=== PATIENT | female | born 1975 | race Caucasian/White ===

== ENCOUNTER 2016-09-26 21:01 | Emergency (ER) | payer MEDICARE, MEDICAID ==
--- NOTE | 2016-09-26 22:05 | ER Document Report ---
ED Medical Screen (RME) - General Stated Complaint: LOWER BACK PAIN Time seen by provider: 22:00 Mode of Arrival: Ambulatory Information source: Patient Notes: 41 yo female presents to ed for chronic low back pain for a long time. She states her primary md told her to come to the ed. States Dr Cummins saw her in July and referred her to Dr Alcazar. She states she went to the doctor recommended and he kicked her out of his office. she states only a miracle could cure her and for her to get her "ass" out of his office TRAVEL OUTSIDE OF THE [place] IN LAST 30 DAYS: No - Related Data Allergies/Adverse Reactions: acetaminophen [From Lortab] Adverse Reaction (Verified 08/04/16 11:57) hydrocodone bitartrate [From Lortab] Adverse Reaction (Verified 08/04/16 11:57) Past Medical History - Past Medical History Cardiac Medical History: Reports: Hx Hypertension Musculoskeltal Medical History: Reports Hx Arthritis Psychiatric Medical History: Reports: Hx Anxiety, Hx Depression Past Surgical History: Reports: Hx Appendectomy, Hx Section, Hx Hysterectomy, Hx Orthopedic Surgery - back 2002 for herniated disc at L4 and L5 ; feet, Hx Tonsillectomy, Hx Tubal Ligation - Immunizations Hx Diphtheria, Pertussis, Tetanus Vaccination: Yes - 8 years ago
[2016-09-26] MEDS ORDERED: IBUPROFEN 800 MG TABLET PO ONE (22:06)
[2016-09-27] MEDS ORDERED: HYDROMORPHONE HCL INJ/PF 2 MG/ML AMPULE IM ONE (04:18)
[2016-09-27] MEDS ORDERED: DIPHENHYDRAMINE HCL 50 MG/ML VIAL IM ONE (05:00)
--- NOTE | 2016-09-27 05:05 | ER Document Report ---
ED General - General Chief Complaint: Low Back Pain Stated Complaint: LOWER BACK PAIN Mode of Arrival: Ambulatory Notes: Patient is a 41-year-old female presents with complaint of low back pain. Pain rates from the right side of the low back and her gluteal region and down her right leg. She does have some weakness in her right foot which says has been there for several months. No saddle anesthesia. No loss of bowel control. She 's actually had some constipation. She says that she is not urinating as much because it hurts to sit down and therefore she has to however over the toilet seat to be able to urinate. She also says it hurts to bear down to urinate, but she is able to urinate despite the pain. No fevers. No infections. No recent trauma to the right side of her back. She does have a history of back surgery and L3 and L4 2003. She's been on disability since 2004. She did see her primary care doctor. She called him and he told her to come to ER for management of her acute pain. She was referred to Dr. Haas, back surgeon, who told her that her back pain cannot be helped because she is a smoker. This is per the patient's report. This is not per Dr. Haas's records. Patient has no other complaints at this time. TRAVEL OUTSIDE OF THE [place] IN LAST 30 DAYS: No - Related Data Allergies/Adverse Reactions: hydrocodone bitartrate [From Lortab] Adverse Reaction (Verified 08/04/16 11:57) Past Medical History - General Information source: Patient - Social History Smoking Status: Current Every Day Smoker Chew tobacco use (# tins/day): No Frequency of alcohol use: None Drug Abuse: None Family History: Reviewed & Not Pertinent Patient has suicidal ideation: No Patient has homicidal ideation: No - Past Medical History Cardiac Medical History: Reports: Hx Hypertension Renal/ Medical History: Denies: Hx Peritoneal Dialysis Musculoskeltal Medical History: Reports Hx Arthritis Psychiatric Medical History: Reports: Hx Anxiety, Hx Depression Past Surgical History: Reports: Hx Appendectomy, Hx Section, Hx Hysterectomy, Hx Orthopedic Surgery - back 2002 for herniated disc at L4 and L5 ; feet, Hx Tonsillectomy, Hx Tubal Ligation - Immunizations Hx Diphtheria, Pertussis, Tetanus Vaccination: Yes - 8 years ago Review of Systems - Review of Systems Notes: My Normal Review Basic REVIEW OF SYSTEMS: CONSTITUTIONAL : Denies fever, chills, or sweats. Denies recent illness. RESPIRATORY: Denies cough, cold, or chest congestion. Denies shortness of breath, difficulty breathing, or wheezing. GASTROINTESTINAL: Denies abdominal pain. Denies nausea, vomiting, or diarrhea. Denies constipation. Last BM: MUSCULOSKELETAL: Right sided back pain SKIN: Denies rash or skin lesions. NEUROLOGICAL: Denies altered mental status or loss of consciousness. Denies headache. Denies weakness or paralysis or loss of use of either side. Denies problems with gait or speech. Denies sensory or motor loss. ALL OTHER SYSTEMS REVIEWED AND NEGATIVE. Physical Exam - Vital signs Vitals: Temp Pulse Resp BP Pulse Ox 99.1 F 106 H 22 H 163/73 H 100 09/26/16 21:58 09/26/16 21:58 09/26/16 21:58 09/26/16 21:58 09/26/16 21:58 - Notes Notes: General Appearance: Well nourished, alert, cooperative, no acute distress, moderate obvious discomfort. Vitals: reviewed, See vital signs table. Neck: Supple, no neck tenderness, No thyromegaly Lungs: No wheezing, No rales, No rhonci, No accessory muscle use, good air exchange bilaterally. Heart: Normal rate, Regular rythm, No murmur, no rub Abdomen: Normal BS, soft, No rigidity, No abdominal tenderness, No guarding, no rebound, no abdominal masses, no organomegaly Rectal: Strongly rectal tone. Patient has good sensation in the rectal area. Back: Some pain to palpation over the lower right back. Pain is worse over the right gluteal region. Extremities: , good pulses in all extremities, no swelling or tenderness in the extremities, no edema. Normal strength and left lower extremity. Patient does have some weakness with plantar flexion of the right foot. She is able dorsiflex the right foot without difficulty. Distal sensation intact. Normal patella reflex. Skin: warm, dry, appropriate color, no rash Neuro: speech clear, oriented x 3, normal affect, responds appropriately to questions. Course - Vital Signs Vital signs: Temp Pulse Resp BP Pulse Ox 99.1 F 106 H 20 163/73 H 100 09/26/16 21:58 09/26/16 21:58 09/27/16 02:15 09/26/16 21:58 09/26/16 21:58 - Transfer of Care Notes: 09/27/16 05:06 Patient's says that she's feeling improved after the pain medication. She still has some pain but it is much improved compared to before. Patient is able move her extremities without too much difficulty with exception of the weakness with plantar flexion of the right foot which is unchanged compared to her baseline. She is good rectal tone. She has no findings consistent with central spinal cord impingement or cauda equina syndrome. I will refer her to the back surgeon, Dr. Acosta. I will also refer her to pain management, Dr. Potter. Informed her that the ER cannot continue to manage her chronic pain and that she must find a single provider to manage her pain. Patient encouraged to return to ER immediately if she has new weakness in her lower extremities, inability to urinate, loss of bowel control, fevers, or feels unwell. Patient agrees with plan and will be discharged home. Dictation of this chart was performed using voice recognition software; therefore, there may be some unintended grammatical errors. 09/27/16 05:07 Discharge - Discharge Clinical Impression: Back pain Qualifiers: Back pain location: low back pain Chronicity: chronic Back pain laterality: right Sciatica presence: with sciatica Sciatica laterality: sciatica of right side Qualified Code(s): M54.41 - Lumbago with sciatica, right side; G89.29 - Other chronic pain Condition: Good Disposition: HOME, SELF-CARE Additional Instructions: LOW BACK PAIN: Three out of every four people will have an episode of disabling back pain during their lifetime. Most commonly the pain is due to straining of the muscles and ligaments in the low back. Usual treatment includes: (1) Rest on a firm surface. Avoid lying on your stomach. (2) Ice pack the painful area. After a few days, gentle heat may be used intermittently to relax the area, or ice packs can be continued. (3) Medication may be needed -- muscle relaxers and antiinflammatory medicines are commonly used. (4) As the back improves, exercises are prescribed to strengthen the back and abdominal muscles. Your doctor will advise you on the proper care for your back at each stage in your recovery. You may be better in a few days -- or healing may take several weeks. If new symptoms of a "herniated disc" (radiation of pain, numbness, or tingling down the back of the leg or weakness in the leg) occur, you should be re-examined. Further testing may be necessary. PAIN MEDICATION INJECTION: You have received an injection of a pain medication. You should experience significant pain relief within 45 minutes. If this injection was a narcotic -- it will impair your judgement, slow your reaction time and make you sleepy (as well as relieve your pain). Narcotics also can cause nausea. You should not drive, work with machinery, or perform any task requiring mental alertness until all effects of the medication are gone -- six to eight hours. Do not take any alcohol, or sedatives, and do not take any other medication without checking with your physician. ORAL NARCOTIC MEDICATION: You have been given a prescription for pain control. This medication is a narcotic. It's best taken with food, as nausea can result if taken on an empty stomach. Don't operate machinery or drive within six hours of taking this medication. Do not combine this medicine with alcohol, or with any medication which can cause sedation (such as cold tablets or sleeping pills) unless you get permission from the physician. Narcotics tend to cause constipation. If possible, drink plenty of fluids and eat a diet high in fiber and fruits. Please be aware that prescription narcotics also have the potential for abuse. People become addicted to these medications because of the general sense of wellbeing that they induce. This feeling along with a significant reduction in tension, anxiety, and aggression provides a stimulating seductive quality to these drugs. Once your pain is under control, we encourage you to discard your unused narcotics. ICE PACKS: Apply ice packs frequently against the painful area. Many different schedules are recommended, such as "20 minutes on, 20 minutes off" or "one hour ice, two hours rest." If you need to work, you may need to go longer between ice treatments. You should plan to have the area ice packed AT LEAST one fourth of the time. The ice should be applied over the wrap, tape, or splint, or over a layer of cloth -- not directly against the skin. Some ice bags have a built-in cloth and can be put directly on the skin. WARM PACKS: After approximately two days, apply gentle heat (such as a heating pad or hot water bottle) for about 20 to 30 minutes about every two hours -- at least four times daily. Warmth and elevation will help you make a more rapid recovery , and will ease the pain considerably. Do not use HOT heat, and never apply heat for longer than 30 minutes. The continuous heat can invisibly damage skin and muscles -- even when no burn is seen on the surface. Damaged muscles can make you MORE sore. FOLLOW-UP CARE: If you have been referred to a physician for follow-up care, call the physician s office for an appointment as you were instructed or within the next two days. If you experience worsening or a significant change in your symptoms, notify the physician immediately or return to the Emergency Department at any time for re-evaluation. Please return to ER immediately if you have worsening pain, new weakness or numbness in your lower extremity, loss of control of her bowel function, are unable to urinate, or have numbness around your rectum. Please follow-up with Dr. Acosta, back surgeon, for further evaluation. Please follow-up with Dr. Thom Potter, pain management physician, for further management of your pain. Prescriptions: Oxycodone HCl/Acetaminophen [Percocet 5-325 mg Tablet] 1 tab PO Q4H PRN #15 tablet PRN Reason: Referrals: NASIR ACOSTA MD [NO LOCAL MD] - Follow up in 3-5 days THOM POTTER MD [ACTIVE STAFF] - Follow up in 3-5 days
[2016-09-27 05:34] VITALS: BP 131/64
== END 2016-09-27 05:25 | disposition home or self-care (01) ==
LOC: ER 21:01
DX: G89.29 Other chronic pain (principal); M54.41 Lumbago with sciatica, right side; R53.1 Weakness; K59.00 Constipation, unspecified; I10 Essential (primary) hypertension; F17.200 Nicotine dependence, unspecified, uncomplicated; Z98.890 Other specified postprocedural states
CPT/HCPCS: 99283; 96372; A9270; J1200; J1170

== ENCOUNTER 2016-10-02 05:35 | Emergency (ER) | payer MEDICARE, MEDICAID ==
[2016-10-02] MEDS ORDERED: MORPHINE SULFATE 10 MG/ML INJ IM ONE (07:02)
--- NOTE | 2016-10-02 07:35 | ER Document Report ---
ED General - General Chief Complaint: Low Back Pain Stated Complaint: BACK PAIN Mode of Arrival: Ambulatory Information source: Patient Notes: 41-year-old female presents with complaints of low back pain. Patient notes the pain has been ongoing for about 3 months, has Medicaid and has been unable to see any specialists. Patient states that she has tried to see pain specialist but did not have prior authorization.. Patient notes that she's had difficulty urinating over the past 2 months but states to difficulty with urination has worsened due to the pain TRAVEL OUTSIDE OF THE [place] IN LAST 30 DAYS: No - HPI Onset: Other Onset/Duration: Persistent Quality of pain: Achy Severity: Moderate Pain Level: 2 Associated symptoms: Other Exacerbated by: Movement Relieved by: Denies Similar symptoms previously: Yes Recently seen / treated by doctor: Yes - Related Data Allergies/Adverse Reactions: hydrocodone bitartrate [From Lortab] Adverse Reaction (Verified 10/02/16 05:46) Past Medical History - Social History Smoking Status: Current Every Day Smoker Cigarette use (# per day): Yes Chew tobacco use (# tins/day): No Smoking Education Provided: No Family History: Reviewed & Not Pertinent - Past Medical History Cardiac Medical History: Reports: Hx Hypertension Renal/ Medical History: Denies: Hx Peritoneal Dialysis Musculoskeltal Medical History: Reports Hx Arthritis Psychiatric Medical History: Reports: Hx Anxiety, Hx Depression Past Surgical History: Reports: Hx Appendectomy, Hx Section, Hx Hysterectomy, Hx Orthopedic Surgery - back 2002 for herniated disc at L4 and L5 ; feet, Hx Tonsillectomy, Hx Tubal Ligation - Immunizations Hx Diphtheria, Pertussis, Tetanus Vaccination: Yes - 8 years ago Review of Systems - Review of Systems Notes: REVIEW OF SYSTEMS: CONSTITUTIONAL : Denies fever, chills, or sweats. Denies recent illness. EENT: Denies eye, ear, throat, or mouth pain or symptoms. Denies nasal or sinus congestion or discharge. Denies throat, tongue, or mouth swelling or difficulty swallowing. CARDIOVASCULAR: Denies chest pain. Denies palpitations or racing or irregular heart beat. Denies ankle edema. RESPIRATORY: Denies cough, cold, or chest congestion. Denies shortness of breath, difficulty breathing, or wheezing. GASTROINTESTINAL: Denies abdominal pain or distention. Denies nausea, vomiting , or diarrhea. Denies blood in vomitus, stools, or per rectum. Denies black, tarry stools. Denies constipation. GENITOURINARY: Admits difficulty urinating FEMALE GENITOURINARY: Denies vaginal bleeding, heavy or abnormal periods, irregular periods. Denies vaginal discharge or odor. MUSCULOSKELETAL: Admits to low back pain SKIN: Denies rash, lesions or sores. HEMATOLOGIC : Denies easy bruising or bleeding. LYMPHATIC: Denies swollen, enlarged glands. NEUROLOGICAL: Denies confusion or altered mental status. Denies passing out or loss of consciousness. Denies dizziness or lightheadedness. Denies headache. Denies weakness or paralysis or loss of use of either side. Denies problems with gait or speech. Denies sensory loss, numbness, or tingling. Denies seizures. PSYCHIATRIC: Denies anxiety or stress. Denies depression, suicidal ideation, or homicidal ideation. ALL OTHER SYSTEMS REVIEWED AND NEGATIVE. Dictation was performed using [employer] voice recognition software PHYSICAL EXAMINATION: GENERAL: Well-appearing, well-nourished and in no acute distress when I walked in but immediately begins to move around in the bed moving her lower extremities and states she is in pain HEAD: Atraumatic, normocephalic. EYES: Pupils equal round and reactive to light, extraocular movements intact, conjunctiva are normal. ENT: Nares patent, oropharynx clear without exudates. Moist mucous membranes. NECK: Normal range of motion, supple without lymphadenopathy LUNGS: Breath sounds clear to auscultation bilaterally and equal. No wheezes rales or rhonchi. HEART: Regular rate and rhythm without murmurs ABDOMEN: Soft, nontender, nondistended abdomen. No guarding, no rebound. No masses appreciated. Female : deferred Musculoskeletal: Normal range of motion, no pitting or edema. No cyanosis. NEUROLOGICAL: Cranial nerves grossly intact. Normal speech, normal gait. Normal sensory, motor exams PSYCH: Normal mood, normal affect. SKIN: Warm, Dry, normal turgor, no rashes or lesions noted. Physical Exam - Vital signs Vitals: Resp 20 10/02/16 05:49 Course - Re-evaluation Re-evalutation: 10/02/16 07:35 Patient had an MRI performed 2 months prior however given that she states with complaints of worsened I have ordered a repeat MRI of her lumbar spine. I do not expect any life-threatening issues 10/02/16 11:25 MRI noted no compression, pt will be given follow up with PCP for further care and pain management After performing a Medical Screening Examination, I estimate there is LOW risk for EXPANDING OR RUPTURED ABDOMINAL AORTIC ANEURYSM, CAUDA EQUINA SYNDROME, EPIDURAL MASS LESION, or HERNIATED DISK CAUSING SEVERE SPINAL STENOSIS, thus I consider the discharge disposition reasonable. The patient and I have discussed the diagnosis and risks, and we agree with discharging home and close follow-up. We also discussed returning to the Emergency Department immediately if new or worsening symptoms occur with the understanding that symptoms and presentations can change. We have discussed the symptoms which are most concerning (e.g., saddle anesthesia, urinary or bowel incontinence or retention , changing or worsening pain) that necessitate immediate return. - Vital Signs Vital signs: Temp Pulse Resp BP Pulse Ox 97.8 F 72 14 127/66 H 97 10/02/16 10:33 10/02/16 10:33 10/02/16 10:33 10/02/16 10:33 10/02/16 10:33 - Diagnostic Test Radiology reviewed: Image reviewed, Reports reviewed Discharge - Discharge Clinical Impression: Back pain Qualifiers: Back pain location: low back pain Chronicity: chronic Back pain laterality: right Sciatica presence: with sciatica Sciatica laterality: sciatica of right side Qualified Code(s): M54.41 - Lumbago with sciatica, right side Condition: Stable Disposition: HOME, SELF-CARE Instructions: Low Back Pain ([facility]) Additional Instructions: [facility] Internal Medicine Internal Medicine [place] Address: [address], [place] [address] Prescriptions: Oxycodone HCl/Acetaminophen [Percocet 5-325 mg Tablet] 1 - 2 tab PO Q4H PRN #15 tablet PRN Reason:
[2016-10-02 10:34] VITALS: BP 127/66
== END 2016-10-02 11:49 | disposition home or self-care (01) ==
LOC: ER 05:35
DX: M54.41 Lumbago with sciatica, right side (principal); G89.29 Other chronic pain; R39.9 Unspecified symptoms and signs involving the genitourinary system; I10 Essential (primary) hypertension; F17.210 Nicotine dependence, cigarettes, uncomplicated; Z98.890 Other specified postprocedural states
CPT/HCPCS: 99283; 96372; 72148; J2270

== ENCOUNTER → 2018-12-30 | Outpatient (CLI) | payer MEDICARE, MEDICAID ==
[2018-12-30 14:57] LABS: ABSOLUTE LYMPHOCYTES (AUTO) 2.6 10^3/uL (0.5-4.7); ABSOLUTE MONOCYTES (AUTO) 0.4 10^3/uL (0.1-1.4); ABSOLUTE NEUT (AUTO) 4.3 10^3/uL (1.7-8.2); BASOPHILS % (AUTO) 0.3 % (0-2); EOSINOPHILS % (AUTO) 0.1 % (0-6); HEMATOCRIT 37.5 % (36.0-47.0); LYMPHOCYTES % (AUTO) 35.2 % (13-45); MEAN CORPUSCULAR HGB CONC 34.6 g/dL (32.0-36.0); MEAN CORPUSCULAR VOLUME 90 fl (80-97); PLATELET COUNT 157 10^3/uL (150-450); RED BLOOD COUNT 4.19 10^6/uL (3.72-5.28); RED CELL DISTRIBUTION WIDTH 12.6 % (11.5-14.0); SEGMENTED NEUTROPHILS % (AUTO) 59.4 % (42-78); TOTAL CELLS COUNTED % (AUTO) 100 %; WHITE BLOOD COUNT 7.3 10^3/uL (4.0-10.5)
--- NOTE | 2018-12-30 15:04 | RADIOLOGY REPORT (SQ) ---
EXAM DESCRIPTION: CT HEAD COMBO COMPLETED DATE/TIME: 12/30/2018 2:29 pm REASON FOR STUDY: SYNCOPE (R55) R55 SYNCOPE AND COLLAPSE COMPARISON: CT brain 11/14/2015 TECHNIQUE: Axial images acquired through the brain without and with intravenous contrast. Images re viewed with bone, brain and subdural windows. Additional sagittal and coronal reconstructions were g enerated. Images stored on PACS. All CT scanners at this facility use dose modulation, iterative reconstruction, and/or weight based d osing when appropriate to reduce radiation dose to as low as reasonably achievable (ALARA). [facility]: Dose Right [facility]: CareDose [facility]: Dose Right [facility]: Teradose 4D [facility]: Locu CONTRAST TYPE AND DOSE: contrast/concentration: Isovue 350.00 mg/ml; Total Contrast Delivered: 50.0 ml; Total Saline Delivered: 55.0 ml RENAL FUNCTION: Creatinine 0.9 RADIATION DOSE: CT Rad equipment meets quality standard of care and radiation dose reduction techniq ues were employed. CTDIvol: 48.6 mGy. DLP: 1760 mGy-cm.. LIMITATIONS: None. FINDINGS: VENTRICLES: Normal size and contour. CEREBRUM: No masses. No hemorrhage. No midline shift. Normal armstrong/white matter differentiation. No ev idence for acute infarction. No enhancing lesions. CEREBELLUM: No masses. No hemorrhage. No alteration of density. No evidence for acute infarction. No enhancing lesions. EXTRA-AXIAL SPACES: No fluid collections. No enhancing lesions. ORBITS AND GLOBE: No intra- or extraconal masses. Normal contour of globe without masses. CALVARIUM: No fracture. PARANASAL SINUSES: No fluid or mucosal thickening. SOFT TISSUES: No mass or hematoma. OTHER: No other significant finding. IMPRESSION: NORMAL BRAIN CT WITHOUT AND WITH CONTRAST. EVIDENCE OF ACUTE STROKE: NO. TECHNICAL DOCUMENTATION: JOB ID: [id number] Quality ID # [id number]: Final reports with documentation of one or more dose reduction techniques (e.g., Au tomated exposure control, adjustment of the mA and/or kV according to patient size, use of iterative reconstruction technique) 2010 [employer]- All Rights Reserved Reading location - IP/workstation name: [email or web address]
[2018-12-30 15:17] LABS: ALANINE AMINOTRANSFERASE 22 U/L (9-52); ALBUMIN 4.2 g/dL (3.5-5.0); ALKALINE PHOSPHATASE 60 U/L (38-126); ANION GAP 9 (5-19); ASPARTATE AMINO TRANSFERASE 16 U/L (14-36); BILIRUBIN,DIRECT 0.2 mg/dL (0.0-0.4); BILIRUBIN,TOTAL 0.3 mg/dL (0.2-1.3); BLOOD UREA NITROGEN 9 mg/dL (7-20); CALCIUM 9.4 mg/dL (8.4-10.2); CARBON DIOXIDE 28 mmol/L (22-30); CHLORIDE 101 mmol/L (98-107); CHOLESTEROL 185.78 mg/dL (0-200); GLUCOSE 82 mg/dL (75-110); POTASSIUM 4.6 mmol/L (3.6-5.0); SODIUM 137.8 mmol/L (137-145); TOTAL PROTEIN 7.1 g/dL (6.3-8.2); TRIGLYCERIDES 105 mg/dL (<150)
[2018-12-30 15:28] LABS: DIRECT LDL 118 mg/dL (<100)
== END ==
LOC: RAD 13:12
PROVIDERS: ATTEND Family Medicine Geriatric Medicine
DX: E05.90 Thyrotoxicosis, unspecified without thyrotoxic crisis or storm (principal); R55 Syncope and collapse; I10 Essential (primary) hypertension
CPT/HCPCS: 36415; 70470; 80053; 80061; 82565; 84443; 85025

== ENCOUNTER → 2019-01-01 | Outpatient (CLI) | payer MEDICAID, MEDICARE ==
--- NOTE | 2019-01-01 16:06 | RADIOLOGY REPORT (SQ) ---
EXAM DESCRIPTION: CAROTID DOPPLER COMPLETED DATE/TIME: 01/01/2019 3:48 pm REASON FOR STUDY: SYNCOPE R55 SYNCOPE AND COLLAPSE COMPARISON: None. TECHNIQUE: Grayscale ultrasound, Doppler velocity and spectra, and color Doppler images acquired of the extra-cranial carotid and vertebral arteries. Images stored on PACS. LIMITATIONS: None. FINDINGS: RIGHT CAROTID CCA Velocities: Within normal limits. ICA Velocities Peak systolic 128 cm/s. End diastolic 59 cm/s. Proximal ICA/CCA peak systolic ratio 1.36. Spectra normal. No significant plaque. LEFT CAROTID CCA Velocities: Within normal limits. ICA Velocities Peak systolic 124 cm/s. End diastolic 50 cm/s. Proximal ICA/CCA peak systolic ratio 1.02. Spectra normal. No significant plaque. VERTEBRAL ARTERIES: Antegrade flow. Normal waveforms. SUBCLAVIAN ARTERIES: No finding. OTHER: No other significant finding. IMPRESSION: NO HEMODYNAMICALLY SIGNIFICANT STENOSIS. COMMENT: Quality ID #[id number]: Velocity criteria are extrapolated from the diameter data as defined by t he Society of Radiologists in Ultrasound Consensus Conference. Radiology 2003: 229; 340-346. TECHNICAL DOCUMENTATION: JOB ID: [id number]- All Rights Reserved Reading location - IP/workstation name: [email or web address]
--- NOTE | 2019-01-01 16:37 | XCELERA REPORT ---
[address] [address] Transthoracic Echocardiogram Report Name: MARIA LUISA YING Age: 43 yrs Gender: Female : 1975 Patient Status: Outpatient Patient Location: [facility] Study Date: 01/01/2019 02:22 PM Height: 63 in Weight: 140 lb BSA: 1.7 m2 Reason For Study: SYNCOPE Ordering Physician: PROSPER DELACRUZ Performed By: Levon Frias Interpretation Summary No post pericardial effusion. AV configuration not seen in SAX, not suspicious of , no AR. Normal MV with no MS, no MVP and mild MR with no LA enlargement. No LVH, no IHSS, mild inferoseptal hypokinesis. Normal LVEF 60 % with no LV diastolic dysfunction. RH is normal no TR jet sampled to derive RVSP to r/o pulm hypertension. No ASD. No valvular vegetation or LAmyxoma, or LV apical clot. MMode/2D Measurements & Calculations RVDd: 3.0 cm LVIDd: 4.6 cm FS: 33.7 % Ao root diam: 2.2 cm IVSd: 0.74 cm LVIDs: 3.0 cm EDV(Teich): Ao root area: LVPWd: 0.78 cm 96.1 ml ESV(Teich): 3.9 cm2 36.0 ml LA dimension: 3.6 cm EF(Teich): 62.5 % LVLd ap4: 8.2 cm SV(MOD-sp4): EDV(MOD-sp4): 42.0 ml 76.0 ml LVLs ap4: 6.1 cm ESV(MOD-sp4): 34.0 ml EF(MOD-sp4): 55.3 % Doppler Measurements & Calculations MV E max jj: MV P1/2t max jj: Ao V2 max: LV V1 max P.0 cm/sec 118.9 cm/sec 127.6 cm/sec 4.8 mmHg MV A max jj: MV P1/2t: 82.6 msec Ao max PG: LV V1 max: 39.0 cm/sec 6.5 mmHg 110.1 cm/sec MV E/A: 2.9 MVA(P1/2t): 2.7 cm2 MV dec slope: 421.6 cm/sec2 MV dec time: 0.27 sec PA V2 max: MV P1/2t-pr_phl: 124.5 cm/sec 82.6 msec PA max P.2 mmHg Left Ventricle The left ventricle is grossly normal size. There is normal left ventricular wall thickness. LV EF is 60%. Doppler measurements suggest normal left ventricular diastolic function. There is inferoseptal wall mild hypokinesis. There is no thrombus. Right Ventricle The right ventricle is normal in size, thickness and function. Atria The right atrium is normal. The left atrial size is normal. The interatrial septum is intact with no evidence for an atrial septal defect. Mitral Valve The mitral valve is grossly normal. There is no evidence of mitral valve prolapse. There is no mitral valve stenosis. There is a trace to mild amount of mitral regurgitation. Aortic Valve The aortic valve is trileaflet. The aortic valve is grossly normal. There is no aortic valvular vegetation. There is no aortic valve stenosis. No aortic regurgitation is present. Tricuspid Valve The tricuspid valve is not well visualized secondary to technical limitations. There is a trace or physiologic amount of tricuspid regurgitation. Pulmonic Valve There is no pulmonic valvular regurgitation. Great Vessels The aortic root is normal size. Effusions There is no pericardial effusion. I WMSI = 1.19 % Normal = 81 Segments Size X - Cannot 2 - 4 - 1-2 small Interpret 1 - Normal Hypokinetic 3 - AkineticDyskinetic 3-5 moderate 5 - 6-14 large Aneurysmal 15-16 diffuse : PROSPER DELACRUZ > Frank Restrepo
== END ==
LOC: SP 13:49
PROVIDERS: ATTEND Family Medicine Geriatric Medicine
DX: R55 Syncope and collapse (principal); R42 Dizziness and giddiness
CPT/HCPCS: 93306; 93880

== ENCOUNTER → 2019-07-27 | Outpatient (CLI) | payer MEDICARE ==
[2019-07-27 13:14] LABS: ABSOLUTE LYMPHOCYTES (AUTO) 2.5 10^3/uL (0.5-4.7); ABSOLUTE MONOCYTES (AUTO) 0.4 10^3/uL (0.1-1.4); ABSOLUTE NEUT (AUTO) 5.2 10^3/uL (1.7-8.2); BASOPHILS % (AUTO) 0.4 % (0-2); EOSINOPHILS % (AUTO) 0.1 % (0-6); HEMATOCRIT 40.2 % (36.0-47.0); MEAN CORPUSCULAR HGB CONC 34.8 g/dL (32.0-36.0); MEAN CORPUSCULAR VOLUME 89 fl (80-97); MONOCYTES % (AUTO) 4.5 % (3-13); PLATELET COUNT 105 10^3/uL (150-450); RED BLOOD COUNT 4.52 10^6/uL (3.72-5.28); RED CELL DISTRIBUTION WIDTH 13.3 % (11.5-14.0); TOTAL CELLS COUNTED % (AUTO) 100 %; WHITE BLOOD COUNT 8.2 10^3/uL (4.0-10.5)
[2019-07-27 13:41] LABS: ALBUMIN 4.5 g/dL (3.5-5.0); ALKALINE PHOSPHATASE 71 U/L (38-126); AMYLASE 64 U/L (30-110); ANION GAP 9 (5-19); ASPARTATE AMINO TRANSFERASE 27 U/L (14-36); BILIRUBIN,DIRECT 0.2 mg/dL (0.0-0.4); BILIRUBIN,TOTAL 0.5 mg/dL (0.2-1.3); BLOOD UREA NITROGEN 8 mg/dL (7-20); CALCIUM 9.5 mg/dL (8.4-10.2); CARBON DIOXIDE 28 mmol/L (22-30); CHLORIDE 102 mmol/L (98-107); GLUCOSE 113 mg/dL (75-110); POTASSIUM 4.5 mmol/L (3.6-5.0); TOTAL PROTEIN 7.8 g/dL (6.3-8.2)
[2019-07-27 13:46] LABS: C-REACTIVE PROTEIN < 5.0 mg/L (<10.0)
[2019-07-27 13:53] LABS: ERYTHROCYTE SEDIMENTATION RATE 22 mm/hr (0-20)
[2019-07-28 12:36] LABS: ANTICHROMATIN AB <0.2 AI (0.0-0.9); CENTROMERE B AB <0.2 AI (0.0-0.9); JO-1 ANTIBODY (ANACOMP) <0.2 AI (0.0-0.9); SJOGREN'S ANTI-SS-B AB <0.2 AI (0.0-0.9); SJOGREN'S SS-A ANTIBODY <0.2 AI (0.0-0.9)
[2019-07-28 13:48] LABS: DNA DOUBLE STRAND ANTIBODY ANA <1 IU/mL (0-9)
== END ==
LOC: OD 11:47
PROVIDERS: ATTEND Family Medicine
DX: E05.00 Thyrotoxicosis with diffuse goiter without thyrotoxic crisis or storm (principal); K62.5 Hemorrhage of anus and rectum; M25.50 Pain in unspecified joint; R10.84 Generalized abdominal pain
CPT/HCPCS: 36415; 80053; 82150; 83690; 84436; 84443; 84480; 85025; 85652; 86140; 86225; 86235; 86430

== ENCOUNTER → 2019-11-18 | Outpatient (CLI) | payer MEDICARE, MEDICAID | LOC: WI 10:00 | PROVIDERS: ATTEND Family Medicine | DX: N63.20 Unspecified lump in the left breast, unspecified quadrant (principal) | CPT/HCPCS: 76642; 77066; G0279; 77062 ==

== ENCOUNTER → 2020-02-25 | Outpatient (CLI) | payer MEDICARE, MEDICAID ==
--- NOTE | 2020-02-25 17:26 | NEURO WORKBENCH EEG REPORT ---
EEG Report Patient: Sulma Montalvo ID: [id number] Referring Doctor: Silvestre Gaviria MD DOS: 02/25/2020 Medications: Fluoxetine, Methimazole, Metoprolol, Succinate, Trazodone History This is a 45 year old right handed female with a history of anxiety, attention/concentration deficit, hypertension, migraines, and asthma. This EEG was requested for hypersomnia. EEG Interpretation This EEG was recorded in the awake and drowsy states. The awake EEG is characterized by an attenuated but fairly well-organized background without a clear posterior dominant rhythm. The remainder of the background was characterized by a combination of alpha and low amplitude beta frequencies. Drowsiness was characterized by slowing of the background rhythms. Photic stimulation resulted in a moderate driving response. There were rare sharply contoured waveforms in the left temporal regions but no definitive epileptiform abnormalities. The EKG showed a regular rhythm in the 50s. EEG Classification * EKG - bradycardia EEG Impression This EEG is essentially normal. The EKG showed a rhythm in the 50s that may require further investigation. INTERPRETING NEUROLOGIST: Raiza Carcamo MD, FRCPC Board Certified in Neurology, with special qualification in Child Neurology, and in Clinical Neurophysiology [facility]
== END ==
LOC: NEURO 08:14
PROVIDERS: ATTEND Pediatrics
DX: G47.19 Other hypersomnia (principal); R05 Cough; R41.840 Attention and concentration deficit; F41.9 Anxiety disorder, unspecified; R41.0 Disorientation, unspecified
CPT/HCPCS: 94010; 95819

== ENCOUNTER → 2020-03-02 | Outpatient (CLI) | payer MEDICARE, MEDICAID ==
[2020-03-02 11:41] LABS: ABSOLUTE BASOPHILS # (AUTO) 0.1 10^3/uL (0.0-0.2); ABSOLUTE LYMPHOCYTES (AUTO) 3.4 10^3/uL (0.5-4.7); ABSOLUTE MONOCYTES (AUTO) 0.4 10^3/uL (0.1-1.4); BASOPHILS % (AUTO) 0.7 % (0-2); EOSINOPHILS % (AUTO) 0.2 % (0-6); HEMOGLOBIN 13.4 g/dL (12.0-15.5); LYMPHOCYTES % (AUTO) 28.4 % (13-45); MEAN CORPUSCULAR HEMOGLOBIN 30.2 pg (27.0-33.4); MEAN CORPUSCULAR HGB CONC 34.4 g/dL (32.0-36.0); MEAN CORPUSCULAR VOLUME 88 fl (80-97); MONOCYTES % (AUTO) 3.2 % (3-13); PLATELET COUNT 137 10^3/uL (150-450); RED BLOOD COUNT 4.44 10^6/uL (3.72-5.28); SEGMENTED NEUTROPHILS % (AUTO) 67.5 % (42-78); TOTAL CELLS COUNTED % (AUTO) 100 %; WHITE BLOOD COUNT 11.9 10^3/uL (4.0-10.5)
[2020-03-02 11:46] LABS: INTERNATIONAL RATION (INR) 0.94; PARTIAL THROMBOPLASTIN TIME 28.8 SEC (23.5-35.8); PROTHROMBIN TIME 12.6 SEC (11.4-15.4)
--- NOTE | 2020-03-02 13:12 | EKG REPORT ---
SEVERITY:- NORMAL ECG - SINUS RHYTHM : Confirmed by: Monico Nails MD 02-Mar-2020 13:11:21
== END ==
LOC: OD 11:09
PROVIDERS: ATTEND Pediatrics
DX: D69.6 Thrombocytopenia, unspecified (principal); G47.19 Other hypersomnia; R41.840 Attention and concentration deficit; R94.31 Abnormal electrocardiogram [ECG] [EKG]; F41.9 Anxiety disorder, unspecified; R41.0 Disorientation, unspecified
CPT/HCPCS: 36415; 85025; 85610; 85730; 93005; 93010

== ENCOUNTER → 2020-04-29 | Outpatient (CLI) | payer MEDICARE, MEDICAID ==
[2020-04-29 11:33] LABS: ABSOLUTE BASOPHILS # (AUTO) 0.1 10^3/uL (0.0-0.2); ABSOLUTE LYMPHOCYTES (AUTO) 2.6 10^3/uL (0.5-4.7); ABSOLUTE MONOCYTES (AUTO) 0.5 10^3/uL (0.1-1.4); ABSOLUTE NEUT (AUTO) 5.4 10^3/uL (1.7-8.2); BASOPHILS % (AUTO) 1.4 % (0-2); EOSINOPHILS % (AUTO) 0.3 % (0-6); HEMATOCRIT 40.6 % (36.0-47.0); HEMOGLOBIN 13.9 g/dL (12.0-15.5); LYMPHOCYTES % (AUTO) 30.2 % (13-45); MEAN CORPUSCULAR HGB CONC 34.1 g/dL (32.0-36.0); MEAN CORPUSCULAR VOLUME 88 fl (80-97); MONOCYTES % (AUTO) 5.8 % (3-13); PLATELET COUNT 148 10^3/uL (150-450); RED BLOOD COUNT 4.63 10^6/uL (3.72-5.28); RED CELL DISTRIBUTION WIDTH 13.7 % (11.5-14.0); SEGMENTED NEUTROPHILS % (AUTO) 62.3 % (42-78); TOTAL CELLS COUNTED % (AUTO) 100 %; WHITE BLOOD COUNT 8.6 10^3/uL (4.0-10.5)
[2020-04-29 11:38] LABS: INTERNATIONAL RATION (INR) 0.83; PROTHROMBIN TIME 11.6 SEC (11.4-15.4)
[2020-04-29 11:39] LABS: PARTIAL THROMBOPLASTIN TIME 31.4 SEC (23.5-35.8)
== END ==
LOC: OD 10:32
PROVIDERS: ATTEND Family Medicine
DX: D69.6 Thrombocytopenia, unspecified (principal)
CPT/HCPCS: 36415; 85025; 85610; 85730

== ENCOUNTER → 2020-06-16 | Outpatient (CLI) | payer MEDICARE, MEDICAID ==
--- NOTE | 2020-06-16 11:00 | WOMENS IMAGING REPORT ---
EXAM DESCRIPTION: U/S BREAST UNILAT LIMITED IMAGES COMPLETED DATE/TIME: 06/16/2020 10:44 am REASON FOR STUDY: LT BREAST 6 MONTH FOLLOW UP N63.20; RT BREAST NODULE N63.10 N63.20 UNSPECIFIED LILIANA MP IN THE LEFT BREAST, UNSPECIFIED QUAD N63.10 UNSPECIFIED LUMP IN THE RIGHT BREAST, UNSPECIFIED JOHN COMPARISON: Mammogram 11/18/2019. Left breast ultrasound 11/18/2019. CT scan 11/09/2019 outside facilit y. TECHNIQUE: Real-time and static grayscale imaging performed of the right and left breast targeted to the area of clinical/mammographic concern. Selected color Doppler images recorded. LIMITATIONS: None. FINDINGS: On the left, stable 10 x 4 mm fibroadenoma. On the right, 7 mm lymph node corresponding to the finding on CT scan. No suspicious findings. IMPRESSION: No suspicious findings detected by ultrasound. BIRAD: 2 Benign findings. RECOMMENDATION: RECOMMENDED FOLLOW-UP: Screening mammogram November 2020. COMMENT: The [employer] ([employer]) has developed recommendations for screening MRI of the breasts in certain patient populations, to be used in conjunction with mammography. Breast MRI s urveillance may be appropriate for women with more than 20% lifetime risk of developing breast cancer as determined by genetic testing, significant family history of the disease, or history of mantle r adiation for Hodgkins Disease. ACR Practice Guidelines 2008. TECHNICAL DOCUMENTATION: JOB ID: [id number] 2010 [employer]- All Rights Reserved Reading location - IP/workstation name: [email or web address]
--- NOTE | 2020-06-16 11:00 | WOMENS IMAGING REPORT ---
EXAM DESCRIPTION: U/S BREAST UNILAT LIMITED IMAGES COMPLETED DATE/TIME: 06/16/2020 10:44 am REASON FOR STUDY: LT BREAST 6 MONTH FOLLOW UP N63.20; RT BREAST NODULE N63.10 N63.20 UNSPECIFIED LILIANA MP IN THE LEFT BREAST, UNSPECIFIED QUAD N63.10 UNSPECIFIED LUMP IN THE RIGHT BREAST, UNSPECIFIED JOHN COMPARISON: Mammogram 11/18/2019. Left breast ultrasound 11/18/2019. CT scan 11/09/2019 outside facilit y. TECHNIQUE: Real-time and static grayscale imaging performed of the right and left breast targeted to the area of clinical/mammographic concern. Selected color Doppler images recorded. LIMITATIONS: None. FINDINGS: On the left, stable 10 x 4 mm fibroadenoma. On the right, 7 mm lymph node corresponding to the finding on CT scan. No suspicious findings. IMPRESSION: No suspicious findings detected by ultrasound. BIRAD: 2 Benign findings. RECOMMENDATION: RECOMMENDED FOLLOW-UP: Screening mammogram November 2020. COMMENT: The [employer] ([employer]) has developed recommendations for screening MRI of the breasts in certain patient populations, to be used in conjunction with mammography. Breast MRI s urveillance may be appropriate for women with more than 20% lifetime risk of developing breast cancer as determined by genetic testing, significant family history of the disease, or history of mantle r adiation for Hodgkins Disease. ACR Practice Guidelines 2008. TECHNICAL DOCUMENTATION: JOB ID: [id number] 2010 [employer]- All Rights Reserved Reading location - IP/workstation name: [email or web address]
== END ==
LOC: WI 09:30
PROVIDERS: ATTEND Family Medicine
DX: D24.2 Benign neoplasm of left breast (principal)
CPT/HCPCS: 76642